=== PATIENT | male | born 1930 | race Caucasian/White ===

== ENCOUNTER 2017-01-22 13:39 | Emergency (ER) | payer OTHER ==
[2017-01-22 15:08] LABS: BASOPHIL 0.7 % (0-2); HCT 51.2 % (42.0-52.0); LYMPHOCYTE 12.2 % (15-48); MCH 30.4 pg (25.0-31.0); MCHC 33.2 g/dL (32.0-36.0); MCV 91.4 fL (78.0-100.0); MONOCYTE 5.6 % (0-12); MPV 11.6 fL (6.0-9.5); NEUTROPHIL 80.5 % (41-80); PLT 233 K/uL (150-400); RDW 15.6 % (11.5-14.0); WBC 12.7 K/uL (4.0-10.5)
[2017-01-22 15:12] LABS: INR 0.93 (0.9-1.2); PROTHROMBIN TIME 12.1 SECONDS (11.7-14.0)
[2017-01-22 15:26] LABS: CREATININE 1.8 mg/dL (0.7-1.2); POTASSIUM 4.6 mmol/L (3.5-5.1)
== END 2017-01-22 18:06 | disposition home or self-care (01) ==
LOC: FER 13:39
PROVIDERS: Emergency Medicine
DX: R55 Syncope and collapse (principal); H66.91 Otitis media, unspecified, right ear; I25.2 Old myocardial infarction; I25.10 Atherosclerotic heart disease of native coronary artery without angina pectoris; E23.0 Hypopituitarism; Z79.82 Long term (current) use of aspirin; Z79.899 Other long term (current) drug therapy
CPT/HCPCS: 36415; 70450; 71010; 80048; 84484; 85025; 85610; 93005

== ENCOUNTER 2021-01-08 10:48 | Emergency (ER) | payer MEDICARE ==
[~2021-01-08 10:48] MED LIST: ADULT LOW DOSE81 MG PO; ANDROGEL1.25 GM TOP; ASPIRIN CHEWABL81 MG PO; ATORVASTATIN CA10 MG PO; AZITHROMYCIN250 MG PO; CLARITIN10 MG PO; CORTEF10 MG PO; DUONEB 2.5-0.5M1 AMP NEB; LEVAQUIN500 MG PO; MUCINEX 600MG600 MG PO; NEBULIZER UNIT NEB; NORVASC5 MG PO; PRILOSEC20 MG PO; STOOL SOFTENER1 EACH PO; SYNTHROID25 MCG PO; TOPROL XL 25MG25 MG PO; TOPROL XL 50 MG50 MG PO; [UNRECOGNIZED DRUG - OTHER] TOP
[2021-01-08 12:22] LABS: EOSINOPHIL 1.8 % (0-7); HCT 40.7 % (42.0-52.0); HGB 12.4 g/dl (13.2-18.0); LYMPHOCYTE 28.7 % (15-48); MCH 31.6 pg (25.0-31.0); MCHC 30.5 g/dL (32.0-36.0); MCV 103.8 fL (78.0-100.0); MONOCYTE 8.4 % (0-12); MPV 11.1 fL (6.0-9.5); NEUTROPHIL 56.3 % (41-80); NRBC 0; PLT 252 K/uL (150-400); RBC 3.92 M/uL (4.70-6.00)
[2021-01-08 12:29] LABS: ALBUMIN 3.2 g/dL (3.4-5.0); BILIRUBIN - TOTAL 0.5 mg/dL (0.2-1.0); BUN/CREAT RATIO (CALC) 13.3 RATIO; CREATININE 1.66 mg/dL (0.67-1.17); GLOBULIN (CALCULATION) 2.9 g/dL; POTASSIUM 3.9 mmol/L (3.5-5.1); TOTAL PROTEIN 6.1 g/dL (6.4-8.2)
[2021-01-08 13:36] LABS: BILIRUBIN 1+ mg/dL (NEGATIVE); BLOOD NEGATIVE Ery/uL (NEGATIVE); CLARITY CLEAR (CLEAR); COLOR YELLOW (YELLOW); GLUCOSE (U) NORMAL (NORMAL); LEUKOCYTES NEGATIVE Leu/uL (NEGATIVE); NITRITE NEGATIVE (NEGATIVE); PROTEIN 2+ mg/dL (NEGATIVE); SPECIFIC GRAVITY >=1.030 (1.001-1.030); UROBILINOGEN 0.2 mg/dL (0.2-1.0)
[2021-01-08 13:44] LABS: BACTERIA TRACE; SQUAMOUS EPITHELIAL CELLS RARE; URINARY WBC RARE
[2021-01-08 13:45] LABS: GRANULAR CASTS MODERATE
== END 2021-01-08 14:17 | disposition home or self-care (01) ==
LOC: FER 10:48
PROVIDERS: Emergency Medicine
DX: R55 Syncope and collapse (principal); I11.0 Hypertensive heart disease with heart failure; I50.9 Heart failure, unspecified; I25.2 Old myocardial infarction; E78.5 Hyperlipidemia, unspecified; F17.220 Nicotine dependence, chewing tobacco, uncomplicated; Z86.73 Personal history of transient ischemic attack (TIA), and cerebral infarction without residual deficits; Z85.46 Personal history of malignant neoplasm of prostate; Z20.822 Contact with and (suspected) exposure to COVID-19
CPT/HCPCS: 36415; 70450; 71045; 80053; 81001; 83880; 84484; 85025; 93005; J1940; U0002

== ENCOUNTER 2021-01-08 15:58 | Day surgery (SDCO) | payer MEDICARE ==
[2021-01-08 16:57] LABS: CREATININE 1.79 mg/dL (0.67-1.17)
== END 2021-01-08 19:20 | disposition left against medical advice (07) ==
LOC: FER 15:58 → FMS 17:27
PROVIDERS: Emergency Medicine; ADMIT Allergy & Immunology Allergy
DX: R55 Syncope and collapse (principal); I69.354 Hemiplegia and hemiparesis following cerebral infarction affecting left non-dominant side; I25.10 Atherosclerotic heart disease of native coronary artery without angina pectoris; I13.0 Hypertensive heart and chronic kidney disease with heart failure and stage 1 through stage 4 chronic kidney disease, or unspecified chronic kidney disease; I25.2 Old myocardial infarction; I50.9 Heart failure, unspecified; Z20.822 Contact with and (suspected) exposure to COVID-19; I65.21 Occlusion and stenosis of right carotid artery; N18.9 Chronic kidney disease, unspecified; N40.0 Benign prostatic hyperplasia without lower urinary tract symptoms; E03.9 Hypothyroidism, unspecified; E23.0 Hypopituitarism; K21.9 Gastro-esophageal reflux disease without esophagitis; F03.90 Unspecified dementia, unspecified severity, without behavioral disturbance, psychotic disturbance, mood disturbance, and anxiety; F17.200 Nicotine dependence, unspecified, uncomplicated; R29.6 Repeated falls; Z95.818 Presence of other cardiac implants and grafts; Z98.890 Other specified postprocedural states; Z79.899 Other long term (current) drug therapy; Z85.46 Personal history of malignant neoplasm of prostate
CPT/HCPCS: 36415; 70450; 71045; 80048; 80053; 81001; 83880; 84484; 85025; 93005; G0378; J1940; U0002

== ENCOUNTER 2021-01-12 15:28 | Inpatient (IN) | payer MEDICARE ==
[2021-01-12 17:44] LABS: BASOPHIL 0.6 % (0-2); EOSINOPHIL 0.5 % (0-7); HCT 39.9 % (42.0-52.0); HGB 12.3 g/dl (13.2-18.0); LYMPHOCYTE 22.2 % (15-48); MCH 31.5 pg (25.0-31.0); MCHC 30.8 g/dL (32.0-36.0); MONOCYTE 3.8 % (0-12); MPV 11.9 fL (6.0-9.5); NEUTROPHIL 71.5 % (41-80); NRBC 0; PLT 292 K/uL (150-400); RBC 3.91 M/uL (4.70-6.00); RDW 15.7 % (11.5-14.0); WBC 8.4 K/uL (4.0-10.5)
[2021-01-12 17:49] LABS: INR 1.05 (0.9-1.2); PTT 34.9 SECONDS (22.2-34.7)
[2021-01-12 18:08] LABS: LACTIC ACID 3.7 mmol/L (0.4-1.9)
[2021-01-12 18:13] LABS: ALBUMIN 2.8 g/dL (3.4-5.0); BILIRUBIN - TOTAL 0.8 mg/dL (0.2-1.0); BUN/CREAT RATIO (CALC) 10.4 RATIO; CREATININE 2.3 mg/dL (0.67-1.17); GLOBULIN (CALCULATION) 3.1 g/dL; POTASSIUM 4.8 mmol/L (3.5-5.1); TOTAL PROTEIN 5.9 g/dL (6.4-8.2)
[2021-01-12 19:07] LABS: BILIRUBIN NEGATIVE (NEGATIVE); BLOOD NEGATIVE Ery/uL (NEGATIVE); CLARITY CLEAR (CLEAR); COLOR YELLOW (YELLOW); GLUCOSE (U) NORMAL (NORMAL); LEUKOCYTES NEGATIVE Leu/uL (NEGATIVE); NITRITE NEGATIVE (NEGATIVE); PROTEIN NEGATIVE (NEGATIVE); SPECIFIC GRAVITY 1.025 (1.001-1.030); UROBILINOGEN 0.2 mg/dL (0.2-1.0); pH 5.5 (5.0-9.0)
[2021-01-12] MEDS ORDERED: LASIX40 MG PO (20:45)
[2021-01-12] MEDS ORDERED: PRINIVIL10 MG PO (20:45)
[2021-01-12] MEDS ORDERED: FLONASE ALLER15.8 ML (20:46)
[2021-01-13 06:17] LABS: BASOPHIL 0.7 % (0-2); EOSINOPHIL 7.1 % (0-7); HGB 11.3 g/dl (13.2-18.0); LYMPHOCYTE 25.8 % (15-48); MCH 32.2 pg (25.0-31.0); MCHC 31.4 g/dL (32.0-36.0); MCV 102.6 fL (78.0-100.0); MPV 11.3 fL (6.0-9.5); NRBC 0; PLT 247 K/uL (150-400); RBC 3.51 M/uL (4.70-6.00); RDW 15.9 % (11.5-14.0); WBC 7.6 K/uL (4.0-10.5)
[2021-01-13 06:30] LABS: CREATININE 2.28 mg/dL (0.67-1.17); MAGNESIUM 2.7 mg/dL (1.8-2.4); POTASSIUM 4.3 mmol/L (3.5-5.1)
[2021-01-14 06:01] LABS: HCT 31.4 % (42.0-52.0); HGB 9.8 g/dl (13.2-18.0); MCH 32.1 pg (25.0-31.0); MCHC 31.2 g/dL (32.0-36.0); MPV 10.7 fL (6.0-9.5); RBC 3.05 M/uL (4.70-6.00); RDW 15.9 % (11.5-14.0); WBC 6.5 K/uL (4.0-10.5)
[2021-01-14 06:20] LABS: BUN/CREAT RATIO (CALC) 10.3 RATIO; CREATININE 1.84 mg/dL (0.67-1.17); POTASSIUM 3.8 mmol/L (3.5-5.1)
[2021-01-15 06:05] LABS: BASOPHIL 0.7 % (0-2); EOSINOPHIL 10.1 % (0-7); HCT 32.7 % (42.0-52.0); HGB 10.1 g/dl (13.2-18.0); LYMPHOCYTE 25.3 % (15-48); MCH 31.3 pg (25.0-31.0); MCHC 30.9 g/dL (32.0-36.0); MCV 101.2 fL (78.0-100.0); MONOCYTE 8.6 % (0-12); MPV 10.9 fL (6.0-9.5); NEUTROPHIL 53.5 % (41-80); NRBC 0; PLT 210 K/uL (150-400); RBC 3.23 M/uL (4.70-6.00); RDW 15.8 % (11.5-14.0); WBC 6.8 K/uL (4.0-10.5)
[2021-01-15 06:22] LABS: IRON % SATURATION 29.9 %SAT (20-50)
[2021-01-15 06:46] LABS: ALBUMIN 2.4 g/dL (3.4-5.0); BILIRUBIN - TOTAL 0.5 mg/dL (0.2-1.0); BUN/CREAT RATIO (CALC) 8.7 RATIO; C-REACTIVE PROTEIN 2.4 mg/dL (<=0.90); CREATININE 1.72 mg/dL (0.67-1.17); GLOBULIN (CALCULATION) 2.5 g/dL; MAGNESIUM 2.3 mg/dL (1.8-2.4); PHOSPHORUS 2.3 mg/dL (2.6-4.7); TOTAL PROTEIN 4.9 g/dL (6.4-8.2)
[2021-01-15 16:30] LABS: BILIRUBIN NEGATIVE (NEGATIVE); BLOOD NEGATIVE Ery/uL (NEGATIVE); CLARITY CLEAR (CLEAR); COLOR YELLOW (YELLOW); GLUCOSE (U) NORMAL (NORMAL); LEUKOCYTES NEGATIVE Leu/uL (NEGATIVE); NITRITE NEGATIVE (NEGATIVE); PROTEIN NEGATIVE (NEGATIVE); SPECIFIC GRAVITY 1.015 (1.001-1.030); UROBILINOGEN 0.2 mg/dL (0.2-1.0)
[2021-01-15 16:41] LABS: SQUAMOUS EPITHELIAL CELLS RARE
[2021-01-16 06:10] LABS: BASOPHIL 0.1 % (0-2); EOSINOPHIL 0 % (0-7); HCT 32.3 % (42.0-52.0); HGB 10.1 g/dl (13.2-18.0); LYMPHOCYTE 14.5 % (15-48); MCH 31.4 pg (25.0-31.0); MCHC 31.3 g/dL (32.0-36.0); MCV 100.3 fL (78.0-100.0); MONOCYTE 3.7 % (0-12); MPV 11.2 fL (6.0-9.5); NEUTROPHIL 78.6 % (41-80); NRBC 0; PLT 242 K/uL (150-400); RBC 3.22 M/uL (4.70-6.00); RDW 15.4 % (11.5-14.0); WBC 6.7 K/uL (4.0-10.5)
[2021-01-16 06:25] LABS: BUN/CREAT RATIO (CALC) 8.1 RATIO; CREATININE 1.73 mg/dL (0.67-1.17); MAGNESIUM 2.3 mg/dL (1.8-2.4); PHOSPHORUS 2.9 mg/dL (2.6-4.7); POTASSIUM 4.1 mmol/L (3.5-5.1)
[2021-01-16] MEDS ORDERED: DOXYCYCLINE MO100 MG PO (11:46)
[2021-01-16] MEDS ORDERED: MUCINEX 600MG600 MG PO (11:48)
== END 2021-01-16 13:44 | disposition home health service (06) | DRG 871 ==
LOC: FER 15:28 → FMS 19:48
PROVIDERS: Emergency Medicine; Hospitalist; Internal Medicine; ADMIT Hospitalist
DX: A41.9 Sepsis, unspecified organism (principal); G93.41 Metabolic encephalopathy; L03.319 Cellulitis of trunk, unspecified; E23.0 Hypopituitarism; N17.9 Acute kidney failure, unspecified; I13.0 Hypertensive heart and chronic kidney disease with heart failure and stage 1 through stage 4 chronic kidney disease, or unspecified chronic kidney disease; L03.312 Cellulitis of back [any part except buttock and flank]; R53.81 Other malaise; R29.6 Repeated falls; F03.90 Unspecified dementia, unspecified severity, without behavioral disturbance, psychotic disturbance, mood disturbance, and anxiety; D35.2 Benign neoplasm of pituitary gland; E03.9 Hypothyroidism, unspecified; E78.5 Hyperlipidemia, unspecified; K21.9 Gastro-esophageal reflux disease without esophagitis; Z20.822 Contact with and (suspected) exposure to COVID-19; I25.10 Atherosclerotic heart disease of native coronary artery without angina pectoris; N40.0 Benign prostatic hyperplasia without lower urinary tract symptoms; I50.9 Heart failure, unspecified; J44.9 Chronic obstructive pulmonary disease, unspecified; R65.20 Severe sepsis without septic shock; N18.30 Chronic kidney disease, stage 3 unspecified; L74.0 Miliaria rubra; F32.9 Major depressive disorder, single episode, unspecified; Z86.73 Personal history of transient ischemic attack (TIA), and cerebral infarction without residual deficits; Z85.46 Personal history of malignant neoplasm of prostate; Z95.5 Presence of coronary angioplasty implant and graft; Z79.82 Long term (current) use of aspirin; Z79.899 Other long term (current) drug therapy
CPT/HCPCS: 36415; 70450; 71250; 80048; 80053; 80202; 81001; 81003; 82550; 82607; 83540; 83550; 83605; 83735; 83880; 84100; 84145; 84484; 85025; 85610; 85730; 86140; 87040; 87088; 93005; 94010; 94640; 97166; 97530; J1100; J1200; J1650; J2543; J3370; J7030; J7040; J7050; J8540; Q5106; U0002

== ENCOUNTER 2021-03-14 19:29 | Emergency (ER) | payer MEDICARE ==
[~2021-03-14 19:29] MED LIST changes: +DOXYCYCLINE MO100 MG PO; +FLONASE ALLER15.8 ML; +LASIX40 MG PO; +PRINIVIL10 MG PO
[2021-03-14 21:12] LABS: BASOPHIL 0.3 % (0-2); EOSINOPHIL 0.5 % (0-7); HCT 38.9 % (42.0-52.0); HGB 11.8 g/dl (13.2-18.0); MCH 30.3 pg (25.0-31.0); MCHC 30.3 g/dL (32.0-36.0); MONOCYTE 7.5 % (0-12); MPV 11.2 fL (6.0-9.5); NEUTROPHIL 71.3 % (41-80); NRBC 0; PLT 204 K/uL (150-400); RBC 3.89 M/uL (4.70-6.00); RDW 15.1 % (11.5-14.0); WBC 11.1 K/uL (4.0-10.5)
[2021-03-14 21:24] LABS: BILIRUBIN NEGATIVE (NEGATIVE); BLOOD NEGATIVE Ery/uL (NEGATIVE); CLARITY CLEAR (CLEAR); COLOR YELLOW (YELLOW); GLUCOSE (U) NORMAL (NORMAL); LEUKOCYTES NEGATIVE Leu/uL (NEGATIVE); NITRITE NEGATIVE (NEGATIVE); PROTEIN NEGATIVE (NEGATIVE); SPECIFIC GRAVITY 1.015 (1.001-1.030); UROBILINOGEN 0.2 mg/dL (0.2-1.0)
[2021-03-14 21:29] LABS: BUN/CREAT RATIO (CALC) 17.8 RATIO; CREATININE 1.29 mg/dL (0.67-1.17); POTASSIUM 3.3 mmol/L (3.5-5.1)
== END 2021-03-14 22:07 | disposition home or self-care (01) ==
LOC: FER 19:29
PROVIDERS: Emergency Medicine
DX: R53.81 Other malaise (principal); I10 Essential (primary) hypertension; Z79.899 Other long term (current) drug therapy; Z79.82 Long term (current) use of aspirin
CPT/HCPCS: 36415; 71045; 80048; 81003; 83880; 85025